=== PATIENT | male | born 1940 | race Caucasian/White ===

== ENCOUNTER 2020-04-19 19:42 | Emergency (ER) | payer MEDICARE ==
[~2020-04-19] VITALS: Ht 170.2 cm; Wt 76.0 kg
[2020-04-19 19:46] VITALS: BP 152/60
[2020-04-19] MEDS ORDERED: LIDOCAINE-MPF 1%, 5ML ONE (19:55)
[2020-04-19] MEDS ORDERED: DIPH,PERTUSS(ACELL),TET VAC/PF 0.5 ML IM-VACC ONE ×2 (20:00→20:15)
[2020-04-19] MEDS ORDERED: LIDOCAINE-MPF 1%, 5ML INFIL ONE (20:00)
[2020-04-19] MEDS ORDERED: NEOSPORIN OINT. PKT 1 PACKET ONE (20:15)
--- NOTE | 2020-04-19 20:55 | NUR ---
WOUND CARE COMPLETED BY TECH. DC EDUCATION PROVIDED, PT DEMONSTRATES UNDERSTANDING. PT AMBULATED STEADILY TO DC WITH TECH AND DAUGHTER
== END 2020-04-19 20:57 | disposition home or self-care (01) ==
LOC: ED 20:42
DX: S51.812A Laceration without foreign body of left forearm, initial encounter (principal); W45.8XXA Other foreign body or object entering through skin, initial encounter; Y93.89 Activity, other specified; Y92.009 Unspecified place in unspecified non-institutional (private) residence as the place of occurrence of the external cause; Y99.8 Other external cause status
CPT/HCPCS: 90471; 90715; 99283